=== PATIENT | male | born 1990 | race American Indian/Alaskan Native ===

== ENCOUNTER 2017-01-23 02:10 | Emergency (ER) | payer OTHER ==
[2017-01-23] MEDS ORDERED: TYLENOL ONE (02:25)
[2017-01-23] MEDS ORDERED: TYLENOL PO ONE (02:25)
[2017-01-23] MEDS ORDERED: MOTRIN PO ONE (05:27)
[2017-01-23] MEDS ORDERED: FLEXERIL PO ONE (05:27)
--- NOTE | 2017-01-23 06:20 | Emergency Department Report ---
ED Back Pain/Injury HPI - General Chief Complaint: Back Pain/Injury Stated Complaint: BACK PAIN Source: patient, EMS Limitations: No Limitations - Related Data Allergies Allergy/AdvReac Type Severity Reaction Status Date / Time No Known Allergies Allergy Verified 01/23/17 02:33 ED Review of Systems ROS: Stated complaint: BACK PAIN Other details as noted in HPI ED Past Medical Hx - Past Medical History Previous Medical History?: No - Surgical History Past Surgical History?: No - Social History Smoking Status: Current Every Day Smoker Substance Use Type: Alcohol ED Physical Exam - General Limitations: No Limitations ED Course Vital Signs 01/23/17 01/23/17 01/23/17 02:13 03:25 05:50 Temperature 98.5 F Pulse Rate 64 Respiratory 18 16 16 Rate Blood Pressure 112/54 [Right] O2 Sat by Pulse 98 Oximetry Critical care attestation.: If time is entered above; I have spent that time in minutes in the direct care of this critically ill patient, excluding procedure time. ED Disposition Condition: Stable Referrals: PRIMARY CARE, [Primary Care Provider] - 3-5 Days
[2017-01-23] MEDS ORDERED: NORCO 5/325 PO ONE (07:04)
--- NOTE | 2017-01-23 07:14 | XRay Report ---
FINAL REPORT EXAM: XR SPINE THORACIC 3V HISTORY: back pain COMPARISONS: None FINDINGS: AP and lateral views thoracic spine Thoracic kyphosis is within normal limits. Vertebral body heights intervertebral disc spaces are preserved. No fractures. Incomplete evaluation of the chest is unremarkable. IMPRESSION: Unremarkable thoracic spine radiographs. Consider additional imaging for worsening/persistent symptoms.
[2017-01-23 07:15] VITALS: BP 111/71
== END 2017-01-23 07:14 | disposition home or self-care (01) ==
LOC: ED 02:10
DX: M54.9 Dorsalgia, unspecified (principal); F17.200 Nicotine dependence, unspecified, uncomplicated
CPT/HCPCS: 72072; 99284

== ENCOUNTER 2018-01-03 19:48 | Emergency (ER) | payer SELFPAY ==
--- NOTE | 2018-01-03 21:05 | XRay Report ---
FINAL REPORT PROCEDURE: XR HAND 3+V RT TECHNIQUE: RIGHT hand radiographs, AP, lateral, and oblique views. CPT 82034-YX HISTORY: rt hand injury COMPARISON: No prior studies are available for comparison. FINDINGS: Fracture (s) and/or Dislocation(s): An irregular ossific density is noted posterior to the carpal bones on lateral view measuring about 5 millimeters. Irregular nondisplaced fractures are noted involving the bases of 4th and 5th metacarpals. Radiocarpal alignment is within normal limits.. Joint space(s): Normal . Soft tissues: Normal . Bone mineralization: Normal . Foreign bodies: None . IMPRESSION: Acute fractures involving the bases of 4th and 5th metacarpals and the triquetrum..
[2018-01-04] MEDS ORDERED: PERCOCET 5/325 ONE (00:31)
[2018-01-04] MEDS ORDERED: PERCOCET 5/325 PO ONE (00:35)
[2018-01-04] MEDS ORDERED: MOTRIN PO ONE (03:27)
--- NOTE | 2018-01-04 03:28 | Emergency Department Report ---
Upper Extremity - HPI Chief Complaint: Extremity Injury, Upper Stated Complaint: RIGHT HAND PAIN Time Seen by Provider: 01/04/18 03:24 Upper Extremity: Right Hand Occurred When: 1 Day Mechanism: Fall Severity: severe Symptoms: Yes Pain with Movement, Yes Swelling, No Deformity, No Limited Range of Movement, No Numbness, No Weakness, No Bruising/Ecchymosis, No Laceration or Abrasion Other History: 27-year-old -[place] male presents to the emergency room complaint of right hand injury. Patient reports that he fell down stairs Friday night about 6 PM while trying to grab his son to prevent him from falling. Patient complains of pain and swelling. Patient ports no past medical history currently takes no meds and has no known drug allergies. ED Review of Systems ROS: Stated complaint: RIGHT HAND PAIN Other details as noted in HPI Comment: All other systems reviewed and negative Musculoskeletal: joint swelling (right hand), arthralgia (right hand) ED Past Medical Hx - Past Medical History Previous Medical History?: No - Surgical History Past Surgical History?: No - Social History Smoking Status: Never Smoker Substance Use Type: Alcohol - Medications Home Medications: Home Medications Medication Instructions Recorded Confirmed Last Taken Type methOCARBAMOL [Robaxin TAB] 500 mg PO TID #21 tab 01/23/17 Unknown Rx Ibuprofen [Motrin 600 MG tab] 600 mg PO Q8H #30 tablet 01/04/18 Unknown Rx oxyCODONE /ACETAMINOPHEN [Percocet 1 tab PO Q4HR #15 tab 01/04/18 Unknown Rx 5/325] Upper Extremity Exam - Exam General: Vital signs noted. No distress. Alert and acting appropriately. Head and Torso: No HEENT Abnormality, No Neck Tenderness, No Chest/Lungs Abnormality, No Abdominal Tenderness, No Back Tenderness Shoulder Exam: Yes Normal Range of Motion in Shoulder, No Shoulder Tenderness, No Clavicle Tenderness, No Shoulder Deformity, No AC Joint Tenderness Arm Exam: No Arm/Humerus Tenderness, No Arm Deformity Elbow: No Elbow Tenderness, No Normal Range of Motion in Elbow, No Elbow Deformity Wrist: No Wrist Tenderness, No Normal ROM in Wrist, No Wrist Deformity, No Snuffbox Tenderness, No Pain with Axial Thumb Compression Hand: Yes Hand Tenderness (fourth and fifth metacarpal), Yes Normal ROM in Digit (s), No Hand Deformity, No Digit Tenderness CMS Exam: Yes Normal Distal Pulses, Yes Normal Capillary Refill, Yes Normal Distal Sensation, No Broken Skin ED Course Vital Signs 01/03/18 01/04/18 20:33 01:36 Temperature 98.6 F Pulse Rate 69 Respiratory 16 20 Rate Blood Pressure 134/70 O2 Sat by Pulse 99 Oximetry ED Medical Decision Making - Radiology Data Radiology results: report reviewed, image reviewed FINAL REPORT PROCEDURE: XR HAND 3+V RT TECHNIQUE: RIGHT hand radiographs, AP, lateral, and oblique views. CPT 65431-QU HISTORY: rt hand injury COMPARISON: No prior studies are available for comparison. FINDINGS: Fracture (s) and/or Dislocation(s): An irregular ossific density is noted posterior to the carpal bones on lateral view measuring about 5 millimeters. Irregular nondisplaced fractures are noted involving the bases of 4th and 5th metacarpals. Radiocarpal alignment is within normal limits.. Joint space(s): Normal . Soft tissues: Normal . Bone mineralization: Normal . Foreign bodies: None . IMPRESSION: Acute fractures involving the bases of 4th and 5th metacarpals and the triquetrum.. Transcribed By: [facility] [place]ict[place] By: TERRA GAN Electronically Authenticated By: TERRA GAN Signed Date/Time: 01/03/182057 DD/ 57 TD/TT: 01/03/182057 - Medical Decision Making Patient has been evaluated by this provider fast track. Patient has been given Percocet in triage and now ordered ibuprofen in fast track. X-ray of right hand shows a fourth and fifth metacarpal fracture. Ulnar gutter ordered. Referral to orthopedist. Critical care attestation.: If time is entered above; I have spent that time in minutes in the direct care of this critically ill patient, excluding procedure time. ED Disposition Clinical Impression: Fracture of fourth metacarpal bone Qualifiers: Encounter type: initial encounter Fracture type: closed Metacarpal location: base Fracture alignment: nondisplaced Laterality: right Qualified Code(s): S62.344A - Nondisplaced fracture of base of fourth metacarpal bone, right hand, initial encounter for closed fracture Fracture of fifth metacarpal bone Qualifiers: Encounter type: initial encounter Fracture type: closed Metacarpal location: base Fracture alignment: nondisplaced Laterality: right Qualified Code(s): S62.346A - Nondisplaced fracture of base of fifth metacarpal bone, right hand, initial encounter for closed fracture Disposition: DC-01 TO HOME OR SELFCARE Is pt being admited?: No Does the pt Need Aspirin: No Condition: Stable Instructions: Boxer Fracture (ED), Hand Fracture (ED) Additional Instructions: Please take pain medication as prescribed. Please do not operate heavy machinery while taking Percocet. Prescriptions: Ibuprofen [Motrin 600 MG tab] 600 mg PO Q8H #30 tablet oxyCODONE /ACETAMINOPHEN [Percocet 5/325] 1 tab PO Q4HR #15 tab Referrals: PRIMARY CAREMD [Primary Care Provider] - 3-5 Days LUL MILLER MD [Staff Physician] - 3-5 Days Forms: Work/School Release Form(ED)
[2018-01-04 04:35] VITALS: BP 129/70
== END 2018-01-04 04:29 | disposition home or self-care (01) ==
LOC: ED 19:48
DX: S62.344A Nondisplaced fracture of base of fourth metacarpal bone, right hand, initial encounter for closed fracture (principal); S62.346A Nondisplaced fracture of base of fifth metacarpal bone, right hand, initial encounter for closed fracture; W10.9XXA Fall (on) (from) unspecified stairs and steps, initial encounter; Y93.89 Activity, other specified; Y99.8 Other external cause status; Y92.89 Other specified places as the place of occurrence of the external cause